=== PATIENT | male | born 2000 | race Two or more races ===

== ENCOUNTER 2023-04-09 13:19 | Emergency (ER) | payer OTHER, SELFPAY ==
--- NOTE | ~2023-04-09 | CT_ITS ---
EXAMINATION: CT ABDOMEN AND PELVIS WITH CONTRAST CLINICAL INFORMATION: Abdominal pain COMPARISON: None available. TECHNIQUE: Multidetector volumetric images were obtained from the superior aspect of the liver through the pubic symphysis following administration 85 mL of Omnipaque 350 intravenous contrast. Sagittal and coronal reformatted images were obtained on the technologist's workstation. Oral contrast: Yes This CT examination was performed using dose optimization techniques as appropriate, variously including the following: *Automated exposure control *Adjustment of mA and/or kV according to patient size (this includes techniques or standardized protocols for targeted exams where dose is matched to indication/reason for exam; i.e. extremities or head) *Use of iterative reconstruction technique DLP: 498 mGy-cm FINDINGS: LUNG BASES: The visualized lung bases are unremarkable. LIVER, GALLBLADDER, AND BILIARY TREE: The liver is normal in size, shape, and attenuation. No focal hepatic lesion or biliary ductal dilatation is present. The gallbladder is unremarkable with no evidence of radiopaque gallstones, gallbladder wall thickening, or obvious pericholecystic inflammatory changes. PANCREAS: Unremarkable. SPLEEN: Unremarkable. ADRENAL GLANDS: Unremarkable. KIDNEYS AND URETERS: The kidneys are normal in size, shape, and attenuation. No hydronephrosis, hydroureter, or calculi seen. No perinephric stranding. BLADDER: Unremarkable. GASTROINTESTINAL TRACT: There is mild wall thickening of the right colon and stranding of the surrounding fat suggestive of mild colitis. There is also question of mild wall thickening of the sigmoid colon. No evidence of obstruction, perforation or abscess. Small bowel is normal. The appendix is normal. ABDOMINAL WALL: No significant hernia is appreciated. LYMPH NODES: Upper normal-size lymph nodes in the right lower quadrant mesentery. Largest measures 1 cm. No ascites. VASCULAR: Unremarkable. PELVIC VISCERA: Unremarkable. OSSEOUS STRUCTURES: Unremarkable. CT/CT abdomen pelvis w IV con IMPRESSION: Mild colitis of the right colon and question sigmoid colon. Upper normal-size right lower quadrant mesenteric lymph nodes. Fleischner guidelines were followed.
[2023-04-09 14:39] VITALS: BP 151/83; PULSE 123; RESP 18; TEMP 36.9; O2SAT 97; BMI 28.8
--- NOTE | 2023-04-09 14:40 | ED_ITS ---
HPI - General Adult General Chief complaint: Abdominal Pain Stated complaint: nausea fever dizzy Time Seen by Provider: 04/09/23 21:05 Source: patient Mode of arrival: ambulatory Limitations: no limitations History of Present Illness HPI narrative: This is a 17-mf[age][id number]-male, hx of ulcerative colitis, presenting to the ER for evaluation of ulcerative colitis with complaints of bloating, unable to eat, SOB, and abdominal pain. Endorsing dizziness. Last week had fever. Had 10 bloody bowel movements yesterday - was started on prednisone taper, currently decreasing from 30mg to 20mg but symptoms have not improved. Currently Dr. Martine Krishnan GI. Patient now saying 2 months of uclerative coltis flair. Vomiting. Onset (ago): week(s) Severity: moderate Pain Consistency: constant Related Data Previous Rx's Medication Instructions Recorded prednisone 20 mg tablet 60 mg PO DAILY #15 tabs 04/09/23 Allergies Allergy/AdvReac Type Severity Reaction Status Date / Time Penicillins [PENICILLINS] Allergy Unknown UNKNOWN Unverified 04/09/23 14:39 Review of Systems Review of Systems: Yes all other systems are reviewed and are negative Gastrointestinal: Comments: bloody bowel movements PMFSH Social History Social History Advance Directives: No Advance Directives Information Provided: No Physical Exam ED Vital Signs: Vital Signs - 24 hr 04/09/23 14:39 Temperature 98.5 F Pulse Rate 123 H Respiratory Rate 18 Blood Pressure 151/83 H Pulse Oximetry 97 Oxygen Delivery Method Room Air BMI result Body Mass Index 28.8 Const General: healthy appearing Nutritional Appearance: average body habitus Orientation/consciousness: oriented to person and patient oriented x3 Limitations: no limitations HENMT Head: Yes normal to inspection Ears: external ears normal General nose exam: Normal external nose present Mouth: Normal oral and palatal mucosa present and oropharynx normal Throat: Yes posterior oropharynx normal Eyes General: appearance normal, both eyes and all related structures Neck Neck: Yes normal visual inspection Chest Chest palpation & inspection: normal inspection of the chest Resp Auscultation: clear to auscultation bilaterally Cardio Jugular venous distension: no JVD Rate: regular rate Rhythm: regular rhythm Heart sounds: S1 normal heart sound present and S2 normal heart sound present GI Inspection: Yes normal to inspection Palpation (GI): Soft to palpation, nontender and No hepatosplenomegaly present Auscultation: normal bowel sounds General: Yes no CVA tenderness Back/Spine/Pelvis Back: no CVA tenderness Skin General skin exam: no rashes or lesions noted Neuro General: oriented to person and patient oriented x3 Cranial nerves: Yes CN's II-XII intact bilaterally Motor exam (neuro): 5/5 motor strength present throughout Extrem General: Yes normal to inspection Psych Appearance: grossly normal Course Course Course Narrative: This is an RME: Additional HPI, ROS, PE not included below will be deferred to primary provider. This is a 2-qmqy-vjc-male, hx of ulcerative colitis, presenting to the ER for evaluation of ulcerative colitis with complaints of bloating, unable to eat, SOB, and abdominal pain. Endorsing dizziness. Last week had fever. Had 10 bloody bowel movements yesterday - was started on prednisone taper, currently decreasing from 30mg to 20mg but symptoms have not improved. Currently Dr. Martine Krishnan GI. No abdominal surgeries. Pt appears tremulous, hypertensive and tachycardic. Plan: Labs, UA. Reevaluation(s) Reevaluation #1: Patient with mild colitis on his CT. no heavy bleeding will increase his steroids for 5 days and then he can taper down to 30. no evidence of infection Time: 22:57 Medications Administered Generic Name Dose Route Start Last Admin Trade Name Freq PRN Reason Stop Dose Admin Sodium Chloride 1,000 mls @ 500 mls/hr 04/09/23 21:30 04/09/23 21:49 Ns IVCONT 04/09/23 23:29 500 mls/hr .Q2H LAURIE Administration Discontinued Medications Generic Name Dose Route Start Last Admin Trade Name Freq PRN Reason Stop Dose Admin Iohexol 100 ml 04/09/23 21:48 04/09/23 21:48 Iohexol 350 Mg/Ml 100 Ml Infus..Btl IV 04/09/23 21:49 85 ml ONCE ONE Administration Methylprednisolone Sodium Succinate 125 mg 04/09/23 21:23 04/09/23 21:49 Methylprednisolone Sod Succ 125 Mg/2 Ml Vial IVPUSH 04/09/23 21:24 125 mg ONCE ONE Administration Medical Decision Making Differential Diagnosis Differential Diagnoses: The differential diagnosis associated with the presentation includes (Lower GI bleed, UC flair, colitis infection were considered) Admission/Observation Consideration of admission/observation: Escalation of care including admission/observation considered (Upon arrival this patient with UC and bleeding was considered for admission) Lab Data MDM Lab Attestation statement: I reviewed the patient's lab results. elevated WBC likely from prednisone, Hct 35 so mild anemia, nml lfts 04/09/23 14:47 04/09/23 14:47 Labs: Lab Results 04/09/23 04/09/23 04/09/23 Range/Units 14:47 14:47 21:19 WBC 15.1 H (4.8-10.8) X10*3/uL RBC 4.60 (4.60-5.80) X10*6/uL Hgb 11.4 L (14.0-18.0) g/dl Hct 35.8 L (42.0-52.0) % MCV 77.8 L (80.0-98.0) fL MCH 24.8 L (27.0-33.0) pg MCHC 31.8 (31.0-36.0) g/dl RDW 13.2 (11.0-16.0) % Plt Count 365 (160-400) X10*3/uL MPV 10.1 (9.4-12.4) fL Immature Gran % (Auto) 0.5 H (0.0-0.4) % Neut % (Auto) 70.3 (45-73) % Lymph % (Auto) 14.9 L (20-40) % [place] % (Auto) 10.8 (2-11) % Eos % (Auto) 3.0 (0-4) % Baso % (Auto) 0.5 (0-2) % Lymph # (Auto) 2.3 (1.2-4.9) X10*3/uL [place] # (Auto) 1.6 H (0.1-1.2) X10*3/uL Eos # (Auto) 0.5 H (0.0-0.4) X10*3/uL Baso # (Auto) 0.1 (0.0-0.2) X10*3/uL Abs Immat Gran (auto) 0.08 H (0.00-0.03) X10*3/uL Absolute Neuts (auto) 10.6 H (2.0-8.3) x10*3/uL Absolute Nucleated RBC 0.000 (0.0-0.012) X10*3/uL Nucleated RBC % (auto) 0.0 (0.0-0.2) /100WBC Smear Tech's Comments VERIFIED Sodium 141 (135-145) mmol/L Potassium 3.5 (3.3-5.1) mmol/L Chloride 110 H (96-108) mmol/L Carbon Dioxide 25 (22-29) mmol/L Anion Gap 10 L (12-20) BUN 12 (9-16) mg/dL Creatinine 0.68 (0.5-1.4) mg/dL Estim Creat Clear Calc 177.5 Estimated GFR > 60 Random Glucose 112 (60-115) mg/dL Calcium 9.9 (8.4-10.2) mg/dL Magnesium 2.0 (1.6-2.6) mg/dL Total Bilirubin 0.2 (0.0-1.0) mg/dL Direct Bilirubin < 0.2 (0.0-0.5) mg/dL AST 10 (5-37) U/L ALT 17 (0-40) U/L Alkaline Phosphatase 62 (39-117) U/L Total Protein 6.8 (6.5-8.0) g/dL Albumin 3.9 (3.5-5.0) g/dL Lipase 31 (8-78) U/L Urine Color Yellow Urine Appearance Clear Urine pH 6.5 (5.0-9.0) Ur Specific [place] 1.020 (1.005-1.025) Urine Protein Negative (Neg-Trace) mg/dL Urine Glucose (UA) Negative (Negative) mg/dL Urine Ketones 15 (Negative) mg/dL Urine Blood Negative (Negative) Urine Nitrite Negative (Negative) Ur Leukocyte Esterase Negative (Negative) Independent Interpretation I performed an independent interpretation of an: CT Scan (no intrabdominal bl eeding) Radiology Impression Discussion of test interpretation with radiology: I have reviewed the radiologist's reading. (right and left colitis which is mild, I agree) Independent Historian Clinical information obtained from an independent historian. History obtained from or confirmed by: Parent (mother and father) Prescription Management I considered prescription management with: Pain Medication (narcotic pain medication was considered and not given) and Antibiotic (anitbiotics were considered and not given secondary to the patient not being infected) Chronic Conditions Patient?s care impacted by: Other (ulcerative colitis) Discharge Plan Discharge Clinical Impression: Ulcerative colitis Patient Disposition: Home, Self-Care Instructions: Ulcerative Colitis (ED) Prescriptions: New prednisone 20 mg tablet 60 mg PO DAILY Qty: 15 0RF Rx Instructions: starting tomorrow take 60mg daily for 5 days then decrease to 30mg and then t aper Referrals: Physician,Unknown J [Primary Care Provider] - 1 week
[2023-04-09 14:55] LABS: Basophils Absolute Auto 0.1 X10*3/uL (0.0-0.2); Basophils Percent Auto 0.5 % (0-2); Eosinophils Absolute Auto 0.5 X10*3/uL (0.0-0.4); Hematocrit 35.8 % (42.0-52.0); Hemoglobin 11.4 g/dl (14.0-18.0); Imm Gran Abs Auto 0.08 X10*3/uL (0.00-0.03); Imm Gran Pct Auto 0.5 % (0.0-0.4); Lymphocytes Absolute Auto 2.3 X10*3/uL (1.2-4.9); Lymphocytes Percent Auto 14.9 % (20-40); MANUAL DIFF FLAG SCAN; Mean Corpuscular HGB Conc 31.8 g/dl (31.0-36.0); Mean Corpuscular Hemoglobin 24.8 pg (27.0-33.0); Mean Corpuscular Volume 77.8 fL (80.0-98.0); Mean Platelet Volume 10.1 fL (9.4-12.4); Monocytes Absolute Auto 1.6 X10*3/uL (0.1-1.2); Monocytes Percent Auto 10.8 % (2-11); Neutrophils Absolute Auto 10.6 x10*3/uL (2.0-8.3); Neutrophils Percent Auto 70.3 % (45-73); Platelet Count 365 X10*3/uL (160-400); Red Cell Distribution Width 13.2 % (11.0-16.0); SCAN SMEAR FLAG 1; White Blood Count 15.1 X10*3/uL (4.8-10.8)
[2023-04-09 15:27] LABS: Alanine Aminotransferase 17 U/L (0-40); Albumin Level 3.9 g/dL (3.5-5.0); Alkaline Phosphatase 62 U/L (39-117); Anion Gap 10 (12-20); Aspartate Amino Transferase 10 U/L (5-37); Bilirubin Direct < 0.2 mg/dL (0.0-0.5); Bilirubin Total 0.2 mg/dL (0.0-1.0); Blood Urea Nitrogen 12 mg/dL (9-16); Calcium 9.9 mg/dL (8.4-10.2); Carbon Dioxide 25 mmol/L (22-29); Chloride 110 mmol/L (96-108); Creatinine Clr Calc Pharmacy 177.5; Estimated Glomerular Filt Rate > 60; Glucose Random 112 mg/dL (60-115); Lipase 31 U/L (8-78); Potassium 3.5 mmol/L (3.3-5.1); Sodium 141 mmol/L (135-145); Total Protein 6.8 g/dL (6.5-8.0)
[2023-04-09 15:50] LABS: SLIDE REVIEW VERIFIED
[2023-04-09 21:27] LABS: Appearance Urine Clear; Color Urine Yellow; Glucose Urine UA Negative (Negative); Leukocyte Esterase Urine Negative (Negative); Nitrite Urine Negative (Negative); PH 6.5 (5.0-9.0); Urine Blood Negative (Negative); Urine Ketones 15 mg/dL (Negative); Urine Protein Negative (Neg-Trace)
[2023-04-09] MEDS: iohexoL 350 MG/ML 100 ML INFUS..BTL IV (21:48)
[2023-04-09] MEDS: 0.9 % Sodium Chloride 1,000 ML 500 ML IVCONT (21:49)
[2023-04-09] MEDS: methylPREDNISolone Sod Succ 125 MG/2 ML VIAL IVPUSH (21:49)
[2023-04-09 23:59] VITALS: BP 132/74; PULSE 72; RESP 18; O2SAT 99
== END 2023-04-10 00:01 | disposition home or self-care (01) ==
PROVIDERS: Physician Assistant Medical; Emergency Provider Emergency Medicine
DX: K51.90 Ulcerative colitis, unspecified, without complications (principal); R06.02 Shortness of breath
CPT/HCPCS: 36415; 74177; 80048; 80076; 81003; 83690; 83735; 85025; 96361; 96374; 99284; J2930; Q9967